=== PATIENT | female | born 1950 | race Caucasian/White ===

== ENCOUNTER 2017-05-28 10:29 | Inpatient (IN) | payer MEDICARE ==
[2017-05-28] VITALS (10 sets, daily range): BP systolic 155–163; BP diastolic 70–76; PULSE 84–112; RESP 9–18; TEMP 98.5–99.4; O2SAT 96–99
[2017-05-28] MEDS ORDERED: ONDANSETRON HCL 4 MG/2 ML VIAL IV PUSH PRN (11:45)
[2017-05-28] MEDS ORDERED: MISCELLANEOUS NURSING INFORMATION XX SCH (11:45)
[2017-05-28] MEDS ORDERED: CHLORHEXIDINE GLUCONATE 2 % 1 PACK (2 CLOTHS) TOP PRN (11:45)
[2017-05-28] MEDS ORDERED: LABETALOL HCL 100 MG/20 ML VIAL IV PUSH PRN (12:00)
--- NOTE | 2017-05-28 12:11 | HHI.HP ---
HPI Service Critical Care Medicine Primary Care Physician No Primary Care Physician Admission Diagnosis Intra-parenchymal brain hemorrhage Diagnosis: (1) Intraparenchymal hemorrhage of brain Diagnosis: Principal (2) Hypertension Diagnosis: Principal (3) CVA (cerebral vascular accident) Diagnosis: Principal Chief Complaint: Confusion, weak left side Travel History International Travel<30 Days: No Contact w/Intl Traveler <30 Da: No Traveled to Known Affected Are: No History of Present Illness This 67-year-old right-handed woman has been having confusion and difficulty with her left arm and leg for 48 hours. Her felt that it might possibly be a medication reaction but today decided to bring her to the emergency department at [facility] in [place], [place]. According to her she has been much more forgetful and confused for the past 30 days. The patient's mother developed dementia at a later age and the felt that this was probably just the same process and his . On arrival to the emergency department in [place] the patient was moderately hypertensive in the 150s and CAT scan of the head revealed a 4 x 3 cm intra- parenchymal hemorrhage in the right frontal lobe. [facility] [place] and was transported emergently to [facility] where I met her on her arrival to the [facility]. Review of the CAT scan from the outside hospital confirms large right frontal lobe parenchymal hemorrhage with a rim of vasogenic edema most likely indicative of a 2 or 3 day history. Review of Systems Constitutional: DENIES: Diaphoretic episodes, Fatigue, Fever, Weight gain, Weight loss, Chills, Dizziness, Change in appetite, Night Sweats Endocrine: DENIES: Abnorml menstrual pattern, Heat/cold intolerance, Polydipsia , Polyuria, Polyphagia Respiratory: DENIES: Apneas, Cough, Snoring, Wheezing, Hemoptysis, Sputum production, Shortness of breath Cardiovascular: DENIES: Chest pain, Palpitations, Syncope, Dyspnea on Exertion , PND, Lower Extremity Edema, Orthopnea, Claudication Neurologic: COMPLAINS OF: Localized weakness, Poor Balance Psychiatric: COMPLAINS OF: Confusion Past Family Social History Allergies: Coded Allergies: No Known Allergies (Unverified , 05/28/17) Past Medical History Beta louise Statin NSAID Physical Exam Vital Signs Vital Signs Date Time Temp Pulse Resp B/P (MAP) Pulse Ox O2 Delivery O2 Flow Rate FiO2 4/16/18 10:30 99.4 84 17 158/70 (99) Physical Exam Pulse 92 and regular, blood pressure 156/88, respirations 14 and nonlabored, oxygen saturation 98% on 2 L Head: Atraumatic, normal. Gaze is deviated to the right side and up. Neck: Supple, airway widely patent, no obstructive noises. Lungs: Clear bilaterally with comfortable respiratory pattern, no adventitious sounds Heart: Normal S1-S2, regular rate and rhythm, no jugular venous distention Abdomen: Soft, nontender, nondistended, no guarding, no peritoneal irritation, bowel sounds active. Extremities: Warm, well-perfused, muscle mass symmetrical. Neurologic: Speech is clear, Left facial droop, left arm and leg markedly weaker than right. Deep tendon reflex patella 2+ right, 3+ left, toes downward bilaterally, no ankle clonus. Slow and inconsistent when following commands. Caprini VTE Risk Assessment Caprini VTE Risk Assessment: Mod/High Risk (score >= 2) VTE Pharm Contraindication: Active bleeding Caprini Risk Assessment Model Point Value = 1 Point Value = 2 Point Value = 3 Point Value = 5 Age 41-60 Minor surgery BMI > 25 kg/m2 Swollen legs Varicose veins or History of unexplained or recurrent spontaneous Oral contraceptives or hormone replacement Sepsis (< 1 month) Serious lung disease, including pneumonia (< 1 month) Abnormal pulmonary function Acute myocardial infarction Congestive heart failure (< 1 month) History of inflammatory bowel disease Medical patient at bed rest Age 61-74 Arthroscopic surgery Major open surgery (> 45 min) Laparoscopic surgery (> 45 min) Malignancy Confined to bed (> 72 hours) Immobilizing plaster cast Central venous access Age >= 75 History of VTE Family history of VTE Factor V Leiden Prothrombin [id number] Lupus anticoagulant Anticardiolipin antibodies Elevated serum homocysteine Heparin-induced thrombocytopenia Other congenital or acquired thrombophilia Stroke (< 1 month) Elective arthroplasty Hip, pelvis, or leg fracture Acute spinal cord injury (< 1 month) Prophylaxis Regimen Total Risk Factor Score Risk Level Prophylaxis Regimen 0-1 Low Early ambulation 2 Moderate Order ONE of the following: *Sequential Compression Device (SCD) *Heparin 5000 units SQ BID 3-4 Higher Order ONE of the following medications: *Heparin 5000 units SQ TID *Enoxaparin/Lovenox 40 mg SQ daily (WT < 150 kg, CrCl > 30 mL/min) *Enoxaparin/Lovenox 30 mg SQ daily (WT < 150 kg, CrCl > 10-29 mL/min) *Enoxaparin/Lovenox 30 mg SQ BID (WT < 150 kg, CrCl > 30 mL/min) AND/OR *Sequential Compression Device (SCD) 5 or more Highest Order ONE of the following medications: *Heparin 5000 units SQ TID (Preferred with Epidurals) *Enoxaparin/Lovenox 40 mg SQ daily (WT < 150 kg, CrCl > 30 mL/min) *Enoxaparin/Lovenox 30 mg SQ daily (WT < 150 kg, CrCl > 10-29 mL/min) *Enoxaparin/Lovenox 30 mg SQ BID (WT < 150 kg, CrCl > 30 mL/min) AND *Sequential Compression Device (SCD) Assessment and Plan Problem List: (1) Intraparenchymal hemorrhage of brain ICD Code: I61.9 - Nontraumatic intracerebral hemorrhage, unspecified Status: Acute (2) CVA (cerebral vascular accident) ICD Code: I63.9 - Cerebral infarction, unspecified Status: Acute (3) Hypertension ICD Code: I10 - Essential (primary) hypertension Assessment and Plan Plan: 1. Maintain systolic blood pressure less than 140, diastolic blood pressure less than 100. 2. Labetalol and hydralazine as needed for blood pressure control. 3. Neurosurgical consultation. 4. Stat coagulation profile. 5. Pepcid for GI ulcer prophylaxis. 6. Chemical DVT prophylaxis contraindicated because of active bleed. 7. SCDs for DVT prophylaxis. 8. PT OT evaluation. 9. Consider CTA head, check stat renal function. 10. Head of bed up 30 elevated. 11. Swallow evaluation. Overall impression: This woman is critically ill with a spontaneous intraparenchymal hemorrhage involving a large portion of the right frontal lobe. She presents with a dense neurologic deficit. Further deterioration is predicted based on the size of the bleed. Critical care time 45 minutes aside from procedures. Problem Qualifiers (1) Hypertension: Qualified Codes: I10 - Essential (primary) hypertension (2) CVA (cerebral vascular accident): Deven Bridges MD May 28, 2017 12:11
[2017-05-28 12:53] LABS: BICARBONATE 27.1 MEQ/L (21.0-32.0); CALCIUM 9.1 MG/DL (8.5-10.1); CREATININE 0.76 MG/DL (0.50-1.00); MAGNESIUM 2.3 MG/DL (1.5-2.5)
[2017-05-28 12:54] LABS: PHOSPHORUS 3.3 MG/DL (2.5-4.9)
[2017-05-28] MEDS: SODIUM CHLOR 0.9% 1000 ML INJ 1,000 ML IV SCH (14:08)
[2017-05-28] MEDS: hydrALAZINE HCL 20 MG/ML VIAL IV PUSH PRN ×2 (14:15→17:08)
[2017-05-28] MEDS: FAMOTIDINE 20 MG/2 ML VIAL IV PUSH SCH (20:28)
--- NOTE | 2017-05-28 23:58 | PD.CONS ---
History of Present Illness Service Neurosurgery Consult Requested By Concrete Pipe Machine Operator-Dr. Maurer Reason for Consult Intracranial hemorrhage Primary Care Physician No Primary Care Physician Diagnoses: History of Present Illness 67-year-old female who according to her has been somewhat confused over the past 3-4 weeks. This has increased significantly over the past 2 days. Earlier on 05/28/2017 she developed increasing confusion, some speech difficulty and was taken to the emergency room at [facility]. A CT scan of the head that revealed a primarily right frontal parenchymal hemorrhage. She was transferred to [facility] for neurosurgery evaluation and other treatment. No seizure activity reported. No nausea vomiting. Review of Systems Constitutional: COMPLAINS OF: Fatigue, DENIES: Weight loss Eyes: DENIES: Blurred vision, Diplopia Ears, nose, mouth, throat: DENIES: Hearing loss, Vertigo Gastrointestinal: DENIES: Abdominal pain, Nausea, Vomiting Musculoskeletal: DENIES: Muscle aches Hematologic/lymphatic: DENIES: Bruising Neurologic: COMPLAINS OF: Speech Problems, DENIES: Abnormal gait, Headache Psychiatric: COMPLAINS OF: Confusion Past Family Social History Allergies: Coded Allergies: No Known Allergies (Unverified , 05/28/17) Past Medical History Hypertension Dyslipidemia Past Surgical History No major surgeries reported Reported Medications She is on a statin medication and beta-louise Family History Negative neurologic disease, stroke Social History No smoking No significant alcohol Physical Exam Vital Signs Vital Signs Date Time Temp Pulse Resp B/P (MAP) Pulse Ox O2 Delivery O2 Flow Rate FiO2 05/28/17 21:50 97 21 05/28/17 19:00 97 Room Air 05/28/17 18:00 102 05/28/17 16:00 90 05/28/17 16:00 99.4 90 9 155/70 (98) 97 05/28/17 15:00 92 05/28/17 14:00 97 05/28/17 12:08 99 21 05/28/17 12:00 86 05/28/17 12:00 98.5 86 13 158/76 (103) 96 05/28/17 10:30 99.4 84 17 158/70 (99) Physical Exam GENERAL: This is a well-nourished, well-developed patient, in no apparent distress. SKIN: No rashes, ecchymoses or lesions. Cool and dry. HEAD: Atraumatic. Normocephalic. No temporal or scalp tenderness. EYES: Pupils equal round and reactive. Extraocular motions intact. No scleral icterus. No injection or drainage. ENT: Nose without bleeding, purulent drainage or septal hematoma. Throat without erythema, tonsillar hypertrophy or exudate. Uvula midline. Airway patent. NECK: Trachea midline. No JVD or lymphadenopathy. Supple, nontender, no meningeal signs. CARDIOVASCULAR: Regular rate and rhythm without murmurs, gallops, or rubs. RESPIRATORY: Clear to auscultation. Breath sounds equal bilaterally. No wheezes , rales, or rhonchi. GASTROINTESTINAL: Abdomen soft, non-tender, nondistended. No hepato-splenomegaly , or palpable masses. No guarding. MUSCULOSKELETAL: Extremities without clubbing, cyanosis, or edema. No joint tenderness, effusion, or edema noted. No calf tenderness. Negative Homans sign bilaterally. NEUROLOGICAL: Awake and relatively alert Moderate expressive speech deficit. Oriented times month, hospital, name Follow simple commands Complete cranial nerve testing is somewhat difficult due to mental status changes. She has mild left facial paresis. Tongue may protrude slightly to the left. Intact shoulder shrug Sensation appears intact all extremities Mild left upper extremity paresis Campos's response absent bilateral No ankle clonus Laboratory Laboratory Tests Test 05/28/17 12:22 05/28/17 13:04 Prothrombin Time 10.0 Prothromb Time International Ratio 1.0 Blood Urea Nitrogen 14 Creatinine 0.76 Random Glucose 107 Calcium Level 9.1 Phosphorus Level 3.3 Magnesium Level 2.3 Sodium Level 141 Potassium Level 3.6 Chloride Level 106 Carbon Dioxide Level 27.1 Anion Gap 8 Estimat Glomerular Filtration Rate 75 Nasal Screen MRSA (PCR) MRSA NOT DETECTED Result Diagram: 05/28/17 1222 Imaging 05/28/2017 CT scan head images [facility] reveal a moderate right frontal parenchymal hemorrhage extending from the periventricular region towards the cortex. There appears to be a subacute left frontal focal subdural hematoma without significant mass-effect. Also appears to be some other scattered areas of chronic to subacute parenchymal hemorrhage over the right frontotemporal region. Assessment and Plan Assessment and Plan Impression: Right frontal ICH Left frontal subdural fluid - possible remote hemorrhage as well as other scattered areas of subacute to chronic parenchymal hemorrhage in the primarily bilateral frontal temporal regions Rec MRI Brain-evaluate for possible underlying mass lesion. Scattered areas of hemorrhage ranging from chronic to subacute to acute indicate probable history of multiple parenchymal hemorrhages, possible amyloid angiopathy. Continue close monitoring of neurologic checks and blood pressure. Physical therapy Discussed with in the intensive care unit Marco Antonio Cope MD May 28, 2017 23:58
[2017-05-29] VITALS (11 sets, daily range): BP systolic 124–186; BP diastolic 61–85; PULSE 82–101; RESP 15–18; TEMP 98.3–98.9; O2SAT 94–98
[2017-05-29] MEDS: hydrALAZINE HCL 20 MG/ML VIAL IV PUSH PRN ×2 (03:17→08:34)
[2017-05-29] MEDS: CHLORHEXIDINE GLUCONATE 2 % 1 PACK (2 CLOTHS) TOP SCH (04:00)
[2017-05-29 05:39] LABS: BICARBONATE 26.3 MEQ/L (21.0-32.0); CREATININE 0.64 MG/DL (0.50-1.00); MAGNESIUM 2.2 MG/DL (1.5-2.5); PHOSPHORUS 3.2 MG/DL (2.5-4.9)
[2017-05-29] MEDS: FAMOTIDINE 20 MG/2 ML VIAL IV PUSH SCH ×2 (08:50→23:24)
[2017-05-29] MEDS: SODIUM CHLOR 0.9% 1000 ML INJ 1,000 ML IV SCH ×2 (10:00→11:26)
[2017-05-29] MEDS ORDERED: GADODIAMIDE PF 287 MG/ML 5 ML VIAL (for RAD MRI) IVCONTRAST ONE (10:58)
--- NOTE | 2017-05-29 12:07 | RADRPT ---
EXAM DATE/TIME: 05/29/2017 10:36 [place] COMPARISON: No previous studies available for comparison. INDICATIONS : Hemorrhage. Left sided weakness. CONTRAST: 14 cc Omniscan (gadodiamide) IV MEDICAL HISTORY : Hypertension. SURGICAL HISTORY : Hysterectomy. ENCOUNTER: Initial ACUITY: 2 day PAIN SCORE: 0/10 LOCATION: head. TECHNIQUE: Multiplanar, multisequence MRI of the brain was performed both prior to and following the administrat ion of paramagnetic contrast. FINDINGS: Multiple subacute intra-axial hemorrhages are noted. The largest is located in the right frontal lobe and measures 2.1 x 3.6 cm in diameter. There is significant surrounding edema and effacement of the overlying sulci. Hematoma demonstrates significant susceptibility artifact and contains T1 hyperinten se hemorrhagic products. Additional subacute hemorrhage is identified in the supraorbital region of the right frontal lobe. Th is hemorrhage measures approximately 1.2 cm in diameter. Surrounding edema is identified. Additional hemorrhagic products are identified along the interhemispheric fissure just above the vent ricles. Focal hemorrhage is also present within the bodies and occipital horns of the lateral ventric les. Chronic appearing hemorrhage with underlying encephalomalacia and gliosis is identified in the left f rontal lobe. There are no enhancing intra-axial lesions. There is no evidence of restricted diffusion to indicate large vessel infarct. CONCLUSION: Multiple subacute and chronic hemorrhages the largest located in the right frontal lobe. No evidence of significant mass effect or infarct. Gliotic white matter changes No evidence of enhancing intra-or extra-axial lesions. Alvin Spears MD on May 29, 2017 at 11:49 Board Certified Radiologist. This report was verified electronically.
--- NOTE | 2017-05-29 12:24 | HHI.NSPN ---
(Jacob Peraza) History Chief Complaint: None (Jacob Peraza) Interval History 05/28: Patient presented to [facility] [place] [facility]'s emergency department with a two day history of confusion and left side weakness. Imaging demonstrated an intraparenchymal haemorrhage to the right frontal lobe. She was emergently transferred to [facility] for further care and management. 05/29: The patient is asleep but does awaken to voice. She denied any headache or dizziness. She was easily distracted and slow to respond. She did follow commands with all extremities and was noted to move them spontaneously. She is oriented to self only. An MRI of the brain demonstrated subacute to chronic haemorrhages without any mass effect or infarct. (Jacob Peraza) System Review Comments No complaints. (Jacob Peraza) Exam Results 05/27/17 05/27/17 05/28/17 05/28/17 05/29/17 05/29/17 06:00 18:00 06:00 18:00 06:00 18:00 Intake Total 0 ml 0 ml Output Total 0 ml 600 ml Balance 0 ml -600 ml Intake Oral 0 ml 0 ml Output Urine Total 0 ml 600 ml # Voids 0 # Bowel Movements 0 Vital Signs Date Time Temp Pulse Resp B/P (MAP) Pulse Ox O2 Delivery O2 Flow Rate FiO2 05/29/17 10:00 91 05/29/17 08:56 98 21 05/29/17 08:00 98.5 93 16 161/70 (100) 97 05/29/17 08:00 92 05/29/17 07:00 95 Room Air 05/29/17 06:00 94 05/29/17 04:00 98.4 100 16 153/67 (95) 94 05/29/17 04:00 100 05/29/17 02:00 82 05/29/17 00:00 98.9 94 18 186/85 (118) 96 05/29/17 00:00 94 05/28/17 22:00 108 05/28/17 21:50 97 21 05/28/17 20:00 99.3 112 18 163/73 (103) 97 05/28/17 20:00 112 05/28/17 19:00 97 Room Air 05/28/17 18:00 102 05/28/17 16:00 90 05/28/17 16:00 99.4 90 9 155/70 (98) 97 05/28/17 15:00 92 05/28/17 14:00 97 05/28/17 12:08 99 21 05/28/17 12:00 86 05/28/17 12:00 98.5 86 13 158/76 (103) 96 05/28/17 10:30 99.4 84 17 158/70 (99) (Jacob Peraza) Physical Examination GENERAL: Asleep but awakens to voice. Affect flat, interacts but does require some coaxing. No apparent distress. HEENT: Normocephalic, atraumatic. PERRLA 2 mm brisk, EOMI. MMM & pink, uvula midline, airway patent, tongue midline to protrusion. MUSCULOSKELETAL: Moves all extremities spontaneously & to command. No evident clubbing or deformity. NEUROLOGICAL: Asleep but awakens to voice. [place] to person only and knows . Speech clear but slow. Does not answer all questions. She does require coaxing frequently. PERRLA 2 mm brisk, EOMI. Tongue midline to protrusion. Moves all extremities spontaneously & to command. She follows commands but varies in responding being easily distracted and not following through. Strength appears fairly normal. (Jacob Peraza) Lab, Micro, Other Results Laboratory Tests Test 05/28/17 12:22 05/28/17 13:04 05/29/17 04:17 Prothrombin Time 10.0 SEC Prothromb Time International Ratio 1.0 RATIO Blood Urea Nitrogen 14 MG/DL 16 MG/DL Creatinine 0.76 MG/DL 0.64 MG/DL Random Glucose 107 MG/DL 105 MG/DL Calcium Level 9.1 MG/DL 9.0 MG/DL Phosphorus Level 3.3 MG/DL 3.2 MG/DL Magnesium Level 2.3 MG/DL 2.2 MG/DL Sodium Level 141 MEQ/L 144 MEQ/L Potassium Level 3.6 MEQ/L 3.5 MEQ/L Chloride Level 106 MEQ/L 107 MEQ/L Carbon Dioxide Level 27.1 MEQ/L 26.3 MEQ/L Anion Gap 8 MEQ/L 11 MEQ/L Estimat Glomerular Filtration Rate 75 ML/MIN 92 ML/MIN Nasal Screen MRSA (PCR) MRSA NOT DETECTED (Jacob Peraza) Medical Decision Making Impression and Plan Impression: Right frontal ICH Left frontal subdural fluid - possible remote hemorrhage Patient is stable. She is moving all extremities spontaneously & to command. She is easily distracted when following commands but her motor strength does appear fairly strong. She is oriented to self only. Intermittently hypertensive. T max 99.4 since admission. Reviewed labs for today. Sodium 144. eGFR improved. MRI brain demonstrated multiple subacute & chronic haemorrhages in the right frontal lobe w/o evidence of significant mass effect or infarct. Gliotic white matter changes. No evidence of enhancing intra- or extra-axial lesions. Plan: Primary & critical care management per Cold Roll Inspector. Neuro checks. Stat CT brain for any decline in neuro status. Hold pharmacologic DVT prophylaxis. Mechanical DVT prophylaxis. Patient is able to be transferred to a regular med/surg floor from Neurosurgery' s perspective. (Jacob Peraza) Attending Statement The exam, history, and the medical decision-making described in the above note were completed with the assistance of the mid-level provider. I reviewed and agree with the findings presented. I attest that I had a [id number] encounter with the patient on the same day, and personally performed and documented my assessment and findings in the medical record. Remains awake and relatively alert Persistent expressive speech difficulty. Follow simple commands slowly Mild left facial paresis Sensory motor function relatively intact in all extremities 05/29/2017 MRI brain images reviewed. The patient has relatively stable right frontal parenchymal intracranial hemorrhage. No definite underlying mass lesion. Multiple other areas of subacute to chronic parenchymal hemorrhages primarily frontotemporal regions. Brain MRI 05/29/17 0000 Signed Impressions: Service Date/Time: Monday, May 29, 2017 10:36 - CONCLUSION: Multiple subacute and chronic hemorrhages the largest located in the right frontal lobe. No evidence of significant mass effect or infarct. Gliotic white matter changes No evidence of enhancing intra-or extra-axial lesions. Alvin Spears MD Findings discussed with patient. Areas of multiple parenchymal hemorrhage may indicate amyloid angiopathy. Continue therapy, stable for floor Continue close monitoring of blood pressure. Nonchemical DVT prophylaxis (Marco Antonio Cope MD) Jacob Peraza May 29, 2017 12:24 Marco Antonio Cope MD May 30, 2017 23:23
[2017-05-29] MEDS ORDERED: cloNIDine HCL 0.1 MG TAB PO PRN (13:00)
--- NOTE | 2017-05-29 13:02 | HHI.CCPN ---
Subjective Remarks/Hospital Course Diagnosis: (1) Intraparenchymal hemorrhage of brain Diagnosis: Principal (2) Hypertension Diagnosis: Principal (3) CVA (cerebral vascular accident) Diagnosis: Principal This 67-year-old right-handed woman has been having confusion and difficulty with her left arm and leg for 48 hours. Her felt that it might possibly be a medication reaction but today decided to bring her to the emergency department at [facility] in [place], [place]. According to her she has been much more forgetful and confused for the past 30 days. The patient's mother developed dementia at a later age and the felt that this was probably just the same process and his . On arrival to the emergency department in [place] the patient was moderately hypertensive in the 150s and CAT scan of the head revealed a 4 x 3 cm intra- parenchymal hemorrhage in the right frontal lobe. She received Keppra and [place] and was transported emergently to [facility] where I met her on her arrival to the [facility]. Review of the CAT scan from the outside hospital confirms large right frontal lobe parenchymal hemorrhage with a rim of vasogenic edema most likely indicative of a 2 or 3 day history. 05/29: More alert and conversant today but remains confused. MRI of brain reveals multiple areas of acute and chronic hemorrhage. She protects her airway well. Objective Vital Signs Date Time Temp Pulse Resp B/P (MAP) Pulse Ox O2 Delivery O2 Flow Rate FiO2 05/29/17 10:00 91 05/29/17 08:56 98 21 05/29/17 08:00 98.5 16 161/70 (100) 05/29/17 07:00 Room Air Intake and Output 05/29/17 05/29/17 05/30/17 08:00 16:00 00:00 Intake Total 0 ml Output Total 600 ml Balance -600 ml Result Diagram: 05/29/17 0417 Objective Remarks Pulse 96 and regular, blood pressure 148/78, respirations 14 and nonlabored, oxygen saturation 97% on 2 L Head: Atraumatic, normal. Gaze is deviated to the right side and up, but she can look straight ahead with these. Neck: Supple, airway widely patent, no obstructive noises. Lungs: Clear bilaterally with comfortable respiratory pattern, no adventitious sounds Heart: Normal S1-S2, regular rate and rhythm, no jugular venous distention Abdomen: Soft, nontender, nondistended, no guarding, no peritoneal irritation, bowel sounds active. Extremities: Warm, well-perfused, muscle mass symmetrical. Neurologic: Speech is clear, Left facial droop, left arm and leg markedly weaker than right. Deep tendon reflex patella 2+ right, 3+ left, toes downward bilaterally, no ankle clonus. Appears more alert but is confused. A/P Problem List: (1) Intraparenchymal hemorrhage of brain ICD Code: I61.9 - Nontraumatic intracerebral hemorrhage, unspecified Status: Acute (2) CVA (cerebral vascular accident) ICD Code: I63.9 - Cerebral infarction, unspecified Status: Acute (3) Hypertension ICD Code: I10 - Essential (primary) hypertension Assessment and Plan Plan: 1. Maintain systolic blood pressure less than 140, diastolic blood pressure less than 100. 2. Labetalol and hydralazine as needed for blood pressure control. 3. Neurosurgical consultation. 4. Stat coagulation profile. 5. Pepcid for GI ulcer prophylaxis. 6. Chemical DVT prophylaxis contraindicated because of active bleed. 7. SCDs for DVT prophylaxis. 8. PT OT evaluation. 9. Consider CTA head, check stat renal function. 10. Head of bed up 30 elevated. 11. Swallow evaluation -passed. 12. Restart home atenolol 13. Add oral clonidine for as needed blood pressure control Overall impression: This woman arrived critically ill with a spontaneous intraparenchymal hemorrhage involving a large portion of the right hemisphere. She presents with a dense neurologic deficit. She is an unreliable historian but apparently has experienced several severe headaches recently. By her 's account she has been deteriorating neurologically for at least 30 days. No operation is planned in the mainstay of her therapy will be blood pressure control and statins. Her neurology follow-up can be arranged in [place]. Problem Qualifiers (1) CVA (cerebral vascular accident): (2) Hypertension: Qualified Codes: I10 - Essential (primary) hypertension Deven Bridges MD May 29, 2017 13:02
[2017-05-29] MEDS: ATENOLOL 25 MG TAB PO SCH ×2 (14:16→23:24)
[2017-05-30] VITALS (7 sets, daily range): BP systolic 132–153; BP diastolic 67–86; PULSE 65–97; RESP 16–18; TEMP 97.3–99.7; O2SAT 96–98
[2017-05-30] MEDS: CHLORHEXIDINE GLUCONATE 2 % 1 PACK (2 CLOTHS) TOP SCH ×2 (03:08→20:12)
[2017-05-30] MEDS: FAMOTIDINE 20 MG/2 ML VIAL IV PUSH SCH (08:38)
[2017-05-30] MEDS: ATENOLOL 25 MG TAB PO SCH ×2 (08:38→21:26)
--- NOTE | 2017-05-30 10:18 | HHI.PR ---
Subjective Remarks Follow-up for right frontal lobe multiple subacute and chronic hemorrhages. Patient is currently doing well. No acute concerns. Denies any history of atrial fibrillation. No chest pain, shortness of breath, fever or chills. Objective Vitals Vital Signs Date Time Temp Pulse Resp B/P (MAP) Pulse Ox O2 Delivery O2 Flow Rate FiO2 05/30/17 08:27 98.5 77 18 138/67 (90) 96 05/30/17 04:00 98.6 80 16 136/76 (96) 98 05/30/17 00:00 97.3 97 16 139/77 (97) 97 05/29/17 20:00 98.7 83 16 148/63 (91) 97 05/29/17 16:00 98.3 101 18 124/61 (82) 96 05/29/17 14:00 85 05/29/17 13:00 92 05/29/17 13:00 98.5 98 15 154/67 (96) 97 I/O 05/29/17 05/29/17 05/29/17 05/30/17 05/30/17 05/30/17 07:00 15:00 23:00 07:00 15:00 23:00 Intake Total 0 ml 1000 ml Output Total 600 ml 2450 ml Balance -600 ml -1450 ml Intake Oral 0 ml IV Total 1000 ml Output Urine Total 600 ml 2450 ml # Bowel Movements 0 Result Diagram: 05/29/17 0417 Imaging Last Impressions Brain MRI 05/29/17 0000 Signed Impressions: Service Date/Time: Monday, May 29, 2017 10:36 - CONCLUSION: Multiple subacute and chronic hemorrhages the largest located in the right frontal lobe. No evidence of significant mass effect or infarct. Gliotic white matter changes No evidence of enhancing intra-or extra-axial lesions. Alvin Spears MD Objective Remarks GENERAL: Alert, NAD. Somewhat flat affect. SKIN: Warm and dry. HEAD: Normocephalic. EYES: No scleral icterus. No injection or drainage. NECK: Supple, trachea midline. No JVD or lymphadenopathy. CARDIOVASCULAR: Regular rate and rhythm without murmurs, gallops, or rubs. RESPIRATORY: Breath sounds equal bilaterally. No accessory muscle use. GASTROINTESTINAL: Abdomen soft, non-tender, nondistended. MUSCULOSKELETAL: No cyanosis, or edema. Neurologic: Spontaneously moves all extremities. Follows commands. BACK: Nontender without obvious deformity. No CVA tenderness. Procedures None A/P Problem List: (1) Intraparenchymal hemorrhage of brain ICD Code: I61.9 - Nontraumatic intracerebral hemorrhage, unspecified Status: Acute (2) Hypertension ICD Code: I10 - Essential (primary) hypertension (3) CVA (cerebral vascular accident) ICD Code: I63.9 - Cerebral infarction, unspecified Status: Acute Assessment and Plan Ms. Cruz is a pleasant 67-year-old female with no significant past medical history who was transferred from [facility] emergently due to intra-parenchymal hemorrhage in the right frontal lobe. Patient was initially managed in the ICU and subsequently transferred to hospitalist service. Neurosurgery was consulted for further management and evaluation. Frontal lobe multiple hemorrhages MRI images reviewed by me on 05/30/2017. Largest hemorrhage is in the right frontal lobe about 2.1 x 3.6 cm in diameter. Will obtain PT and OT for possible inpatient rehab evaluation. Hypertension Tachycardia Patient was started on atenolol 25 mg every 12 hours. Currently blood pressure well controlled and heart rate is also well controlled. Full code. SCDs. Telemetry. Problem Qualifiers (1) Hypertension: Qualified Codes: I10 - Essential (primary) hypertension (2) CVA (cerebral vascular accident): Vonda Andres DO May 30, 2017 10:18 am
--- NOTE | 2017-05-30 17:03 | HHI.NSPN ---
(Jacob Peraza) History Chief Complaint: None (StuJacob MEDINA) Interval History 05/28: Patient presented to [facility]'s emergency department with a two day history of confusion and left side weakness. Imaging demonstrated an intraparenchymal haemorrhage to the right frontal lobe. She was emergently transferred to [facility] for further care and management. 05/29: The patient is asleep but does awaken to voice. She denied any headache or dizziness. She was easily distracted and slow to respond. She did follow commands with all extremities and was noted to move them spontaneously. She is oriented to self only. An MRI of the brain demonstrated subacute to chronic haemorrhages without any mass effect or infarct. 05/30: When seen this afternoon the patient is awake and alert in bed visiting with her family. She has no complaints of headache, dizziness or double or blurry vision. She also denies any pain, numbness, tingling or weakness to the extremities. She still responds slowly but more fully participates in her assessment. She does have some receptive aphasia and is not able to follow some commands. She does have a mild left-sided facial droop. There are no sensorimotor deficits noted. ([place] Castle[place]) Exam Results 05/28/17 05/28/17 05/29/17 05/29/17 05/30/17 05/30/17 06:00 18:00 06:00 18:00 06:00 18:00 Intake Total 0 ml 0 ml 1000 ml Output Total 0 ml 600 ml 2450 ml Balance 0 ml -600 ml -1450 ml Intake Oral 0 ml 0 ml IV Total 1000 ml Output Urine Total 0 ml 600 ml 2450 ml # Voids 0 # Bowel Movements 0 Vital Signs Date Time Temp Pulse Resp B/P (MAP) Pulse Ox O2 Delivery O2 Flow Rate FiO2 05/30/17 16:48 98.5 65 18 151/86 (107) 96 05/30/17 12:00 99.0 68 18 132/80 (97) 96 05/30/17 08:27 98.5 77 18 138/67 (90) 96 05/30/17 04:00 98.6 80 16 136/76 (96) 98 05/30/17 00:00 97.3 97 16 139/77 (97) 97 05/29/17 20:00 98.7 83 16 148/63 (91) 97 05/29/17 16:00 98.3 101 18 124/61 (82) 96 05/29/17 14:00 85 05/29/17 13:00 92 05/29/17 13:00 98.5 98 15 154/67 (96) 97 05/29/17 10:00 91 05/29/17 08:56 98 21 05/29/17 08:00 98.5 93 16 161/70 (100) 97 05/29/17 08:00 92 05/29/17 07:00 95 Room Air 05/29/17 06:00 94 05/29/17 04:00 98.4 100 16 153/67 (95) 94 05/29/17 04:00 100 05/29/17 02:00 82 05/29/17 00:00 98.9 94 18 186/85 (118) 96 05/29/17 00:00 94 05/28/17 22:00 108 05/28/17 21:50 97 21 05/28/17 20:00 99.3 112 18 163/73 (103) 97 05/28/17 20:00 112 05/28/17 19:00 97 Room Air 05/28/17 18:00 102 05/28/17 16:00 90 05/28/17 16:00 99.4 90 9 155/70 (98) 97 05/28/17 15:00 92 05/28/17 14:00 97 05/28/17 12:08 99 21 05/28/17 12:00 86 05/28/17 12:00 98.5 86 13 158/76 (103) 96 05/28/17 10:30 99.4 84 17 158/70 (99) (Jacob Peraza) Physical Examination GENERAL: Awake & alert in bed visiting with family. Affect flat but readily interacts, occasionally requires some coaxing. No apparent distress. HEENT: Normocephalic, atraumatic. Mild left-sided facial droop. PERRLA 3 mm brisk, EOMI. MMM & pink, uvula midline, airway patent, tongue midline to protrusion. MUSCULOSKELETAL: Moves all extremities spontaneously & purposefully as well as to command. No evident clubbing or deformity. NEUROLOGICAL: Awake & alert. Oriented to person & month, states year is 2079 then 2007, states she is in her brother's house. Speech clear but slow. Receptive aphasia. Mild left-sided facial droop, o/w CN II through XII appear grossly intact. PERRLA 3 mm brisk, EOMI. Tongue midline to protrusion. Intermittently requires coaxing. Sensation appears intact to light touch to all extremities. Moves all extremities spontaneously & purposefully as well as to command. Motor strength is strong except for hand intrinsics which patient had difficulty following commands for assessment. (Jacob Peraza) Lab, Micro, Other Results Recent Impressions Brain MRI 05/29/17 0000 Signed Impressions: Service Date/Time: Monday, May 29, 2017 10:36 - CONCLUSION: Multiple subacute and chronic hemorrhages the largest located in the right frontal lobe. No evidence of significant mass effect or infarct. Gliotic white matter changes No evidence of enhancing intra-or extra-axial lesions. Alvin Spears MD Laboratory Tests Test 05/28/17 12:22 05/28/17 13:04 05/29/17 04:17 Prothrombin Time 10.0 SEC Prothromb Time International Ratio 1.0 RATIO Blood Urea Nitrogen 14 MG/DL 16 MG/DL Creatinine 0.76 MG/DL 0.64 MG/DL Random Glucose 107 MG/DL 105 MG/DL Calcium Level 9.1 MG/DL 9.0 MG/DL Phosphorus Level 3.3 MG/DL 3.2 MG/DL Magnesium Level 2.3 MG/DL 2.2 MG/DL Sodium Level 141 MEQ/L 144 MEQ/L Potassium Level 3.6 MEQ/L 3.5 MEQ/L Chloride Level 106 MEQ/L 107 MEQ/L Carbon Dioxide Level 27.1 MEQ/L 26.3 MEQ/L Anion Gap 8 MEQ/L 11 MEQ/L Estimat Glomerular Filtration Rate 75 ML/MIN 92 ML/MIN Nasal Screen MRSA (PCR) MRSA NOT DETECTED (Jacob Peraza) Medical Decision Making Impression and Plan Impression: Right frontal ICH Left frontal subdural fluid - possible remote hemorrhage Patient is doing well. She moves all extremities spontaneously & to command. No evident sensorimotor deficits. Left-sided facial droop. Improved orientation. Afebrile past 24 hrs. MRI brain demonstrated multiple subacute & chronic haemorrhages in the right frontal lobe w/o evidence of significant mass effect or infarct. Gliotic white matter changes. No evidence of enhancing intra- or extra-axial lesions. Plan: Primary & critical care management per Conservation Worker. Neuro checks. Stat CT brain for any decline in neuro status. Hold pharmacologic DVT prophylaxis. Mechanical DVT prophylaxis. (Jacob Peraza) Attending Statement The exam, history, and the medical decision-making described in the above note were completed with the assistance of the mid-level provider. I reviewed and agree with the findings presented. I attest that I had a [id number] encounter with the patient on the same day, and personally performed and documented my assessment and findings in the medical record. On examination 05/30/2017, patient remains relatively alert. Mild expressive and receptive speech deficit. Follow simple commands Mild to moderate left facial paresis Tongue protrudes slightly in the midline Sensorimotor function within normal limits all extremities Stable neurologic exam following intracranial hemorrhage Continue therapy Continue nonchemical DVT prophylaxis Monitor pressure Monitor electrolytes Stable for floor. (Marco Antonio Cope MD) Jacob Peraza May 30, 2017 17:03 Marco Antonio Cope MD May 30, 2017 23:17
[2017-05-30] MEDS: FAMOTIDINE 20 MG TAB PO SCH (21:25)
[2017-05-31] VITALS: BP 154/71; PULSE 68; PULSE 75; RESP 18; TEMP 99.7; O2SAT 97
[2017-05-31 04:00] VITALS: PULSE 56
[2017-05-31 06:27] VITALS: BP 147/68; PULSE 58; RESP 18; TEMP 98.8; O2SAT 96
[2017-05-31 07:45] VITALS: BP 145/67; PULSE 60; RESP 19; TEMP 98.3; O2SAT 96
[2017-05-31 08:00] VITALS: PULSE 71
[2017-05-31] MEDS: FAMOTIDINE 20 MG TAB PO SCH (08:57)
[2017-05-31] MEDS ORDERED: PILL SPLITTER OTHER PRN (09:00)
[2017-05-31] MEDS ORDERED: amLODIPine BESYLATE 5 MG TAB PO SCH (09:00)
[2017-05-31] MEDS ORDERED: METOPROLOL TARTRATE 25 MG TAB PO SCH (09:00)
[2017-05-31] MEDS ORDERED: METO25TA3 PO (10:20)
[2017-05-31] MEDS ORDERED: AMLO5 PO (10:20)
[2017-05-31] MEDS ORDERED: LIPI20TA PO (10:20)
[2017-05-31 11:46] VITALS: BP 162/73; PULSE 63; RESP 20; TEMP 98.1; O2SAT 97
--- NOTE | 2017-05-31 11:55 | HHI.DS ---
Discharge Summary Admission Date May 28, 2017 at 10:29 am Discharge Date: May 31, 2017 Admitting Diagnosis Intra-parenchymal brain hemorrhage (1) Intraparenchymal hemorrhage of brain ICD Code: I61.9 - Nontraumatic intracerebral hemorrhage, unspecified Diagnosis: Principal Status: Acute (2) Hypertension ICD Code: I10 - Essential (primary) hypertension Diagnosis: Principal (3) CVA (cerebral vascular accident) ICD Code: I63.9 - Cerebral infarction, unspecified Diagnosis: Principal Status: Acute Procedures None Brief History - From Admission This 67-year-old right-handed woman has been having confusion and difficulty with her left arm and leg for 48 hours. Her felt that it might possibly be a medication reaction but today decided to bring her to the emergency department at [facility] in [place], [place]. According to her she has been much more forgetful and confused for the past 30 days. The patient's mother developed dementia at a later age and the felt that this was probably just the same process and his . On arrival to the emergency department in [place] the patient was moderately hypertensive in the 150s and CAT scan of the head revealed a 4 x 3 cm intra- parenchymal hemorrhage in the right frontal lobe. She received Keppra and [place] and was transported emergently to [facility] where I met her on her arrival to the [facility]. Review of the CAT scan from the outside hospital confirms large right frontal lobe parenchymal hemorrhage with a rim of vasogenic edema most likely indicative of a 2 or 3 day history. CBC/BMP: 05/29/17 0417 Significant Findings Laboratory Tests Test 05/28/17 12:22 05/28/17 13:04 05/29/17 04:17 Random Glucose 107 MG/DL (74-106) Estimat Glomerular Filtration Rate 75 ML/MIN (>89) Imaging Last Impressions Brain MRI 05/29/17 0000 Signed Impressions: Service Date/Time: Monday, May 29, 2017 10:36 - CONCLUSION: Multiple subacute and chronic hemorrhages the largest located in the right frontal lobe. No evidence of significant mass effect or infarct. Gliotic white matter changes No evidence of enhancing intra-or extra-axial lesions. Alvin Spears MD PE at Discharge GENERAL: Alert, NAD. Somewhat flat affect. SKIN: Warm and dry. HEAD: Normocephalic. EYES: No scleral icterus. No injection or drainage. NECK: Supple, trachea midline. No JVD or lymphadenopathy. CARDIOVASCULAR: Regular rate and rhythm without murmurs, gallops, or rubs. RESPIRATORY: Breath sounds equal bilaterally. No accessory muscle use. GASTROINTESTINAL: Abdomen soft, non-tender, nondistended. MUSCULOSKELETAL: No cyanosis, or edema. Neurologic: Spontaneously moves all extremities. Follows commands. BACK: Nontender without obvious deformity. No CVA tenderness. Pt update on day of discharge Patient is currently doing well. Denies any chest pain, shortness of breath, fever or chills. Family is at bedside. Hospital Course Ms. Cruz is a pleasant 67-year-old female with no significant past medical history who was transferred from [facility] emergently due to intra-parenchymal hemorrhage in the right frontal lobe. Patient was initially managed in the ICU and subsequently transferred to hospitalist service. Neurosurgery was consulted for further management and evaluation. Frontal lobe multiple hemorrhages MRI images reviewed by me on 05/30/2017. Largest hemorrhage is in the right frontal lobe about 2.1 x 3.6 cm in diameter. Patient is accepted at [facility] inpatient rehab. Neurosurgery evaluated patient on 05/30/2017. No surgical intervention indicated in the progress note. Hypertension Tachycardia Patient was on atenolol 25 mg every 12 hours. However heart rate has been in the low 60s and below 60 as well. For hypertension, will start patient on amlodipine 5 mg daily. We will switch atenolol to metoprolol 12.5 mg twice daily. Ideally, it would be nice to quickly taper off metoprolol within several days. If heart rate remains in the recent level range 70s and 80s, consider discontinuing metoprolol altogether. Full code. Discussed with [facility] public utilities sales representative, case management and family. Pt Condition on Discharge: Good Discharge Disposition: Rehab Inpatient Discharge Time: <= 30 minutes Discharge Instructions DIET: Follow Instructions for: Heart Healthy Diet Activities you can perform: Regular-No Restrictions New Medications: Atorvastatin (Lipitor) 20 Mg Tab 20 MG PO HS for Cholesterol Management, #30 TAB 0 Refills Amlodipine (Norvasc) 5 Mg Tab 5 MG PO DAILY for Blood Pressure Management, #30 TAB Metoprolol Tartrate (Metoprolol Tartrate) 25 Mg Tab 12.5 MG PO Q12HR for Heart, #60 TAB Hold if HR < 75, systolic BP < 120 Vonda Andres DO May 31, 2017 11:55 am
== END 2017-05-31 16:10 | DRG 64 ==
LOC: EDBD 10:29 → N03B 10:29 → N05A 05-29 15:26
PROVIDERS: ADMIT Hospitalist; ATTEND Hospitalist
PROC: 0T9B70Z Drainage of Bladder with Drainage Device, Via Natural or Artificial Opening (ICD-10-PCS; principal; 2017-05-29)
DX: I61.1 Nontraumatic intracerebral hemorrhage in hemisphere, cortical (principal); G93.6 Cerebral edema; G81.94 Hemiplegia, unspecified affecting left nondominant side; R47.01 Aphasia; I10 Essential (primary) hypertension; R29.810 Facial weakness; E78.5 Hyperlipidemia, unspecified; R33.9 Retention of urine, unspecified; R00.0 Tachycardia, unspecified
CPT/HCPCS: 70553; 80048; 83735; 84100; 85610; 87641; A9579; J0360; J7030